=== PATIENT | female | born 1965 | race Two or more races ===

== ENCOUNTER 2020-06-02 10:52 | Emergency (ER) | payer OTHER ==
[~2020-06-02] VITALS: Ht 167.6 cm; Wt 88.5 kg
[2020-06-02] MEDS ORDERED: MUPI22OI2 TP (11:13)
[2020-06-02] MEDS ORDERED: CEPH500C2 PO (11:13)
[2020-06-02] MEDS ORDERED: LISI10TA29 PO (11:17)
[2020-06-02] MEDS ORDERED: NAPR-1009 PO (11:17)
--- NOTE | 2020-06-02 11:17 | NUR ---
Patient discharged to home in stable condition. Written and verbal after care instructions given. Patient verbalizes understanding of instructions. Stressed follow up or return to ER for worsening s/s.
== END 2020-06-02 11:18 | disposition home or self-care (01) ==
LOC: ER 10:52
DX: L03.311 Cellulitis of abdominal wall (principal)
CPT/HCPCS: A4663